=== PATIENT | female | born 1965 | race Caucasian/White ===

== ENCOUNTER 2017-05-03 18:43 | Inpatient (IN) | payer MEDICARE, MEDICAID ==
[~2017-05-03] VITALS: Ht 152.4 cm; Wt 60.0 kg
[~2017-05-03 18:43] MED LIST: LEVE500T53 PO; LEVE500T9 PO; LEVE750T35 PO
[2017-05-03 20:21] LABS: BASOPHILS % (AUTO) 0.6 % (0.0-2.0); EOSINOPHILS % (AUTO) 0.5 % (1.0-6.0); HEMATOCRIT 43.9 % (36-46); HEMOGLOBIN 14.7 g/dL (12.0-16.0); LYMPHOCYTES # (AUTO) 2.4 K/uL (1.0-4.8); LYMPHOCYTES % (AUTO) 23.6 % (22.0-44.0); MEAN CORPUSCULAR HEMOGLOBIN 28.9 pg (26.0-34.0); MEAN CORPUSCULAR HGB CONC 33.6 G/dL (31.0-37.0); MEAN CORPUSCULAR VOLUME 86 fL (80-100); MONOCYTES # (AUTO) 0.6 K/uL (0.1-1.0); MONOCYTES % (AUTO) 6.2 % (2.0-9.0); NEUTROPHILS % (AUTO) 69.1 % (40.0-70.0); PLATELET COUNT (AUTO) 330 K/uL (150-450); RED CELL DISTRIBUTION WIDTH 13.4 % (11.5-14.5)
[2017-05-03 20:28] LABS: ANION GAP 8 mmol/L (8-16); CALCIUM, TOTAL 9.1 mg/dL (8.8-10.5); CARBON DIOXIDE 29 mmol/L (22-29); CHLORIDE 103 mmol/L (98-107); CREATININE 0.62 mg/dL (0.60-1.30); GLOMERULAR FILTR. RATE CALC > 60 mL/min (>60); GLUCOSE,RANDOM 90 mg/dL (70-110); POTASSIUM 3.5 mmol/L (3.5-5.1); SODIUM SERUM 140 mmol/L (136-145); UREA NITROGEN, BLOOD 10 mg/dL (7-18)
[2017-05-03 20:34] LABS: ALANINE AMINOTRANSFERASE 30 U/L (12-78); ALBUMIN 3.9 g/dL (3.4-5.0); ALKALINE PHOSPHATASE 143 U/L (46-116); ASPARTATE AMINOTRANSFERASE 25 U/L (15-37); BILIRUBIN,TOTAL 0.4 mg/dL (0.1-1.0); TOTAL PROTEIN, SERUM 8.3 g/dL (6.4-8.2)
[2017-05-03] MEDS ORDERED: HALOPERIDOL 5 MG TABLET PO PRN (21:00)
[2017-05-03] MEDS ORDERED: ZOLPIDEM TARTRATE 10 MG TABLET PO PRN (21:00)
[2017-05-03] MEDS ORDERED: LORazepam 2 MG TABLET PO PRN (21:00)
[2017-05-04] MEDS ORDERED: INFLUENZA VIRUS VACCINE QVS 2017-18 (3YR+)/PF 60 MCG/0.5 ML SYRINGE IM ONE (00:45)
[2017-05-04 00:46] VITALS: BP 135/81
[2017-05-04] MEDS ORDERED: HALOPERIDOL LACTATE 5 MG/ML VIAL IM ONE (01:15)
[2017-05-04] MEDS ORDERED: DiphenhydrAMINE HCL 50 MG/ML VIAL IM ONE (01:15)
[2017-05-04] MEDS ORDERED: LORazepam 2 MG/ML VIAL IM ONE (01:15)
[2017-05-04 08:20] LABS: CHOL/HDL RATIO 3.4 (3.9-5.7)
[2017-05-04] MEDS ORDERED: LevETIRAcetam 500 MG TABLET PO SCH (09:00)
[2017-05-04] MEDS ORDERED: ACETAMINOPHEN 325 MG TABLET PO PRN (15:00)
[2017-05-04] MEDS ORDERED: IBUPROFEN 400 MG TABLET PO PRN (15:00)
[2017-05-04] MEDS: LevETIRAcetam 250 MG TABLET PO SCH (20:22)
[2017-05-05 07:08] LABS: CHOL/HDL RATIO 3.3 (3.9-5.7); THYROID STIMULATING HORMONE 1.6 uIU/mL (0.36-3.74)
[2017-05-05 07:16] LABS: HEMOGLOBIN A1C 6.1 % (4.5-6.2)
[2017-05-05 08:00] VITALS: BP 116/79
[2017-05-05] MEDS: LevETIRAcetam 250 MG TABLET PO SCH ×2 (11:54→17:38)
[2017-05-05 17:07] VITALS: BP 130/70
[2017-05-06] MEDS: LevETIRAcetam 250 MG TABLET PO SCH ×2 (08:24→17:13)
[2017-05-06 08:58] VITALS: BP 143/81
[2017-05-06 16:55] VITALS: BP 126/74
[2017-05-06] MEDS: DIVALPROEX SODIUM 500 MG DR TABLET PO SCH (17:00)
[2017-05-06] MEDS: RisperiDONE 1 MG TABLET PO SCH (17:00)
[2017-05-07 00:30] VITALS: BP 144/100
[2017-05-07 08:15] VITALS: BP 129/78
[2017-05-07] MEDS: LevETIRAcetam 250 MG TABLET PO SCH (08:55)
[2017-05-07] MEDS: RisperiDONE 1 MG TABLET PO SCH (09:00)
[2017-05-07] MEDS: DIVALPROEX SODIUM 500 MG DR TABLET PO SCH (09:00)
[2017-05-07] MEDS ORDERED: DIVALPROEX SODIUM 500 MG DR TABLET PO SCH (09:00)
[2017-05-07] MEDS ORDERED: LEVE750T4 PO (16:58)
[2017-05-07] MEDS ORDERED: DIVA250T4 PO (16:59)
[2017-05-07] MEDS ORDERED: RISP1TAB89 PO (17:03)
== END 2017-05-07 17:30 | disposition home or self-care (01) | DRG 885 ==
LOC: EMS 18:44 → AHU 23:00 → 3EI 05-05 00:08
PROVIDERS: ADMIT Psychiatry & Neurology Psychiatry; ATTEND Psychiatry & Neurology Psychiatry
DX: F33.2 Major depressive disorder, recurrent severe without psychotic features (principal); G40.909 Epilepsy, unspecified, not intractable, without status epilepticus; R45.851 Suicidal ideations; E78.5 Hyperlipidemia, unspecified; F41.9 Anxiety disorder, unspecified; Z79.899 Other long term (current) drug therapy
CPT/HCPCS: 83036; 84443; 99285; G0480; J1200; J1630; J2060

== ENCOUNTER 2018-02-28 20:38 | Emergency (ER) | payer MEDICARE, MEDICAID ==
[~2018-02-28] VITALS: Ht 154.9 cm; Wt 68.0 kg
[~2018-02-28 20:38] MED LIST changes: +DIVA250T4 PO; -LEVE500T53 PO; -LEVE500T9 PO; -LEVE750T35 PO; +LEVE750T4 PO; +RISP1TAB89 PO
[2018-02-28] MEDS ORDERED: LEVE750T35 PO (20:54)
[2018-02-28] MEDS ORDERED: LEVE250T2 PO (20:54)
[2018-02-28] MEDS ORDERED: LEVE500T9 PO (20:54)
[2018-02-28 22:47] VITALS: BP 120/80
== END 2018-02-28 23:09 | disposition home or self-care (01) ==
LOC: EMS 20:39
DX: S20.212A Contusion of left front wall of thorax, initial encounter (principal); S70.02XA Contusion of left hip, initial encounter; W01.198A Fall on same level from slipping, tripping and stumbling with subsequent striking against other object, initial encounter; Y93.89 Activity, other specified; Y92.89 Other specified places as the place of occurrence of the external cause; Y99.8 Other external cause status
CPT/HCPCS: 71100

== ENCOUNTER 2022-10-21 19:55 | Emergency (ER) | payer MEDICARE, MEDICAID ==
[~2022-10-21] VITALS: Ht 154.9 cm; Wt 70.5 kg
[~2022-10-21 19:55] MED LIST changes: -DIVA250T4 PO; +LEVE250T2 PO; +LEVE500T9 PO; +LEVE750T35 PO; -LEVE750T4 PO; -RISP1TAB89 PO
[2022-10-21 20:05] VITALS: TEMP 98.7
[2022-10-21 20:46] LABS: COVID AG,FIA SOURCE NASOPHARYNGEAL
[2022-10-21 20:46] LABS: BASOPHILS % (AUTO) 0.9 % (0.0-2.0); EOSINOPHILS % (AUTO) 0.2 % (1.0-6.0); HEMATOCRIT 43.3 % (36-46); HEMOGLOBIN 14.2 g/dL (12.0-16.0); LYMPHOCYTES # (AUTO) 1.2 K/uL (1.0-4.8); MEAN CORPUSCULAR HGB CONC 32.8 G/dL (31.0-37.0); MEAN CORPUSCULAR VOLUME 88 fL (80-100); MONOCYTES # (AUTO) 0.5 K/uL (0.1-1.0); MONOCYTES % (AUTO) 19.5 % (2.0-9.0); NEUTROPHILS # (AUTO) 0.8 K/uL (1.8-7.7); NEUTROPHILS % (AUTO) 30.4 % (40.0-70.0); PLATELET COUNT (AUTO) 163 K/uL (150-450); RED CELL DISTRIBUTION WIDTH 15.4 % (11.5-14.5)
[2022-10-21 20:51] LABS: ANION GAP 5 mmol/L (8-16); CARBON DIOXIDE 29 mmol/L (22-29); CHLORIDE 101 mmol/L (98-107); CREATININE 0.79 mg/dL (0.60-1.30); GLOMERULAR FILTR. RATE CALC > 60 mL/min (>60); GLUCOSE,RANDOM 107 mg/dL (70-110); POTASSIUM 3.4 mmol/L (3.5-5.1); SODIUM SERUM 135 mmol/L (136-145)
[2022-10-21 20:56] LABS: RAPID GROUP A STREP NEGATIVE (NEGATIVE)
[2022-10-21 21:00] VITALS: BP 138/77; PULSE 73; RESP 18
[2022-10-21 21:05] LABS: INFLUENZA TYPE A NEGATIVE FOR TYPE A (NEGATIVE); INFLUENZA TYPE B NEGATIVE FOR TYPE B (NEGATIVE)
== END 2022-10-21 21:30 | disposition home or self-care (01) ==
LOC: EMS 19:55
DX: U07.1 COVID-19 (principal); Z98.890 Other specified postprocedural states
CPT/HCPCS: 80048; 85025; 87430; 87804; 99282